=== PATIENT | male | born 1980 | race Caucasian/White ===

== ENCOUNTER → 2021-08-21 09:56 | Outpatient (CLI) | payer OTHER, SELFPAY ==
--- NOTE | ~2021-08-21 | MR_ITS ---
EXAMINATION: MR knee LT wo con DATE: 08/21/2021 11:01 INDICATION: Chronic left knee pain TECHNIQUE: Magnetic resonance imaging (MRI) of the left knee was performed without intravenous contra st. Sequences included coronal PD-weighted FSE, coronal PD-weighted FS FSE, sagittal T2-weighted FSE , sagittal PD-weighted FS FSE and axial PD weighted fat saturated FSE. COMPARISON: None. FINDINGS: Medial compartment: Medial meniscus is normal. Articular cartilage is normal. Lateral compartment: Lateral meniscus is normal. Articular cartilage is normal. Patellofemoral compartment: Articular cartilage is normal. Ligaments and tendons: Anterior and posterior cruciate ligaments are normal. The medial collateral ligament and fibular dylon ateral ligament complex are normal. The extensor mechanism is normal. The visualized medial and later al hamstring tendons as well as the iliotibial band are normal. Fluid: Physiologic amount of fluid in the joint space. No loose osteochondral bodies identified. Osseous/other: Normal marrow signal. There are a few small low signal intensity bone islands in the distal femur and proximal tibia. No fracture or pathologic marrow replacing process. Small region of edema at the lisa p suprapatellar fat pad which can be seen with fat pad impingement syndrome. IMPRESSION: 1. Small region of edema in the deep suprapatellar fat pad which can be seen with fat pad impingement syndrome. 2. Otherwise normal study with normal menisci, cartilage and stabilizing ligaments of the knee. Reviewed, dictated and finalized at location A. IMPRESSION: 1. Small region of edema in the deep suprapatellar fat pad which can be seen wi th fat pad impingement syndrome. 2. Otherwise normal study with normal menisci, cartilage and stabilizing ligame nts of the knee.
== END ==
PROVIDERS: PCP Family Medicine; Visit Provider Orthopaedic Surgery
DX: M25.562 Pain in left knee (principal); G89.29 Other chronic pain
CPT/HCPCS: 73721